=== PATIENT | male | born 2005 | race African-American/Black ===

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

== ENCOUNTER 2025-05-23 22:20 | Emergency (ER) | payer OTHER | END 2025-05-23 23:50 | disposition home or self-care (01) | LOC: ERS 22:20 | DX: G47.9 Sleep disorder, unspecified (principal) | CPT/HCPCS: 99282 ==